=== PATIENT | female | born 1980 | race Hispanic/Latino ===

== ENCOUNTER → 2018-04-27 | Day surgery (SDC) | payer OTHER ==
[~2018-04-27] MED LIST: FENTANYL CITRATE/PF 100MCG/2 ML INJ ONE; HYDROXYZINE HCL25 MG PO; HYOSCYAMINE SULFATE 0.5 MG/ML AMP ONE; MIDAZOLAM HCL 2 MG/2 ML VIAL ONE; PROPOFOL IV EMULSION 10 MG/ML 50 ML VIAL ONE
[2018-04-27 15:40] VITALS: BP 125/79
--- NOTE | 2018-04-27 16:05 | Operative Report ---
DATE OF PROCEDURE: April 27, 2018 REFERRING PHYSICIAN: Diony Yu MD PROCEDURE PERFORMED: Colonoscopy and polypectomy with biopsies. INDICATIONS FOR PROCEDURE: Lower abdominal pain. MEDICATION: Patient was done under MAC. Please see anesthesiologist's note. PROCEDURE: With the patient in the left lateral decubitus position, the flexible fiberoptic Olympus colonoscope was inserted into the rectum with ease and advanced all the way to the cecum. Mucosa overlying the cecum appeared to be within normal limits. The scope was then withdrawn slowly, and 1 polyp was hot biopsied from the ascending colon. The rest of the ascending, transverse and descending appeared to be within normal limits. There were some patchy areas of erythema and low-grade edema noted in the sigmoid colon, and biopsies were obtained. The rectum grossly appeared to be within normal limits. The scope was then retroflexed into the distal rectum, and small internal hemorrhoids were noted along with some hypertrophied anal papillae. The scope was then straightened out. It was subsequently withdrawn. Patient tolerated the procedure well. IMPRESSION 1. Ascending colon polyp, hot biopsied. 2. Sigmoiditis, mild, patchy, biopsied. 3. Internal hemorrhoids, none actively bleeding. 4. Hypertrophied anal papillae. PLAN: Follow up histology. Initiate high-fiber, low-fat diet. Initiate high-fiber supplement. Start VSL #3 one p.o. daily and Bentyl 10 mg 1 p.o. t.i.d. Job#: [id number] cc:DIONY YU MD
== END | disposition home or self-care (01) ==
LOC: OR 11:34
PROVIDERS: ATTEND Internal Medicine Gastroenterology
DX: K63.5 Polyp of colon (principal); R10.31 Right lower quadrant pain; Z68.31 Body mass index [BMI] 31.0-31.9, adult; R03.0 Elevated blood-pressure reading, without diagnosis of hypertension; K52.9 Noninfective gastroenteritis and colitis, unspecified; K64.8 Other hemorrhoids
CPT/HCPCS: 45384; J1980; J2250; 45378